=== PATIENT | female | born 1995 ===

== ENCOUNTER 2017-05-12 11:35 | Emergency (ER) | payer SELFPAY ==
[2017-05-12 12:02] VITALS: RESP 18; O2SAT 100
[2017-05-12 13:03] LABS: RBC URINE 5 /hpf (0-3); URINE BACTERIA FEW (<OCC); URINE BILIRUBIN NEGATIVE (NEGATIVE); URINE BLOOD 1+ (NEGATIVE); URINE COLOR Yellow (YELLOW); URINE GLUCOSE (UA) NORMAL (Normal); URINE KETONE NEGATIVE (NEGATIVE); URINE LEUKOCYTE ESTERASE 1+ Leu/uL (Negative); URINE PROTEIN NEGATIVE (NEGATIVE); URINE UROBILINOGEN NORMAL mg/dL (0.2-1.0); WBC URINE 15 /hpf (0-5)
--- NOTE | 2017-05-12 13:42 | C.PDOC ---
Time Seen by Provider: 05/12/17 13:21 Chief Complaint (Nursing): Female Genitourinary Past Medical History Vital Signs: Last Vital Signs Temp 98.2 F 05/12/17 11:59 Pulse 73 05/12/17 11:59 Resp 18 05/12/17 11:59 BP 112/62 05/12/17 11:59 Pulse Ox 100 05/12/17 11:59 - Social History Hx Alcohol Use: No Hx Substance Use: No - Immunization History Hx Tetanus Toxoid Vaccination: No Hx Influenza Vaccination: No Hx Pneumococcal Vaccination: No ED Course And Treatment O2 Sat by Pulse Oximetry: 100 Disposition Counseled Patient/Family Regarding: Studies Performed, Diagnosis, Need For Followup, Rx Given - Disposition Referrals: [facility] [Outside] [facility] [facility] [Outside] Disposition: HOME/ ROUTINE Disposition Time: 13:39 Condition: STABLE Additional Instructions: Beber lquidos aumentados, agua y jugo de arndano alexandra. [place] antibiticos hasta que se complete, incluso si se siente mejor en unos gan. Seguimiento en la clnica mdica; regresar a ER para vomitar, peor dolor de espalda o cualquier otra preocupacin. Prescriptions: Nitrofurantoin Macrocrystals [Macrobid] 100 mg PO BID #14 cap Instructions: Urinary Tract Infection in Women (ED) Forms: Gen Discharge Inst Romansh, [employer] Connect (Romansh) - Clinical Impression Clinical Impression: Urinary tract infection
--- NOTE | 2017-05-12 13:46 | C.PDOC ---
History Of Present Illness 21 year old female presents to the ED with complaint of pain in the suprapubic area that has been going on since this morning. Patient states that urine has a foul smell that has been intermittent from the past 4 months. Patient also complains of associated nausea and back pain. Patient denies vomit, vaginal discharge, vaginal bleeding, painful intercourse. Of note, she denies any previous visits for evaluation of her symptoms. Time Seen by Provider: 05/12/17 13:21 Chief Complaint (Nursing): Female Genitourinary History Per: Patient History/Exam Limitations: no limitations Onset/Duration Of Symptoms: Days Current Symptoms Are (Timing): Still Present Quality Of Discomfort: Aching Associated Symptoms: Nausea, Back Pain, Urinary Symptoms (foul smell of urine). denies: Fever, Chills, Vomiting Alleviating Factors: None Recent travel outside of the [place]: No Abnormal Vaginal Bleeding: No Last Menstral Period: Last week of April Past Medical History Reviewed: Historical Data, Nursing Documentation, Vital Signs Vital Signs: Last Vital Signs Temp 98.4 F 05/12/17 13:59 Pulse 76 05/12/17 13:59 Resp 18 05/12/17 13:59 BP 116/64 05/12/17 13:59 Pulse Ox 100 05/12/17 14:00 - Medical History PMH: No Chronic Diseases Surgical History: No Surg Hx Family History: States: Unknown Family Hx - Social History Hx Alcohol Use: No Hx Substance Use: No - Immunization History Hx Tetanus Toxoid Vaccination: No Hx Influenza Vaccination: No Hx Pneumococcal Vaccination: No Review Of Systems Constitutional: Negative for: Fever, Chills Gastrointestinal: Positive for: Nausea. Negative for: Vomiting Genitourinary: Positive for: Other (Malodorous urine). Negative for: Dysuria, Frequency, Vaginal Discharge, Vaginal Bleeding Musculoskeletal: Positive for: Back Pain (Lower back) Physical Exam - Physical Exam Appears: Non-toxic, No Acute Distress Skin: Normal Color, Warm, Dry Oral Mucosa: Moist Chest: Symmetrical Cardiovascular: Rhythm Regular Respiratory: No Rales, No Rhonchi, No Wheezing Gastrointestinal/Abdominal: Bowel Sounds, Soft, No Tenderness Back: CVA Tenderness (Mild) Neurological/Psych: Oriented x3, Normal Speech, Normal Cognition ED Course And Treatment O2 Sat by Pulse Oximetry: 100 (Room air) Pulse Ox Interpretation: Normal Medical Decision Making Medical Decision Making: Impression: 21yo female w/ suprapubic pain and associated back pain, malodorous urine Plan: -- Urine culture obtained, test and urinalysis performed. Patient was given instructions to follow for proper care, also if symptoms persist to come back. Patient understood the instructions. Disposition - Disposition Referrals: [facility] [Outside] [facility] [Outside] Disposition: HOME/ ROUTINE Disposition Time: 14:00 Condition: STABLE Additional Instructions: Beber lquidos aumentados, agua y jugo de arndano alexandra. [place] antibiticos hasta que se complete, incluso si se siente mejor en unos gan. Seguimiento en la clnica mdica; regresar a ER para vomitar, peor dolor de espalda o cualquier otra preocupacin. Prescriptions: Nitrofurantoin Macrocrystals [Macrobid] 100 mg PO BID #14 cap Instructions: Urinary Tract Infection in Women (ED) Forms: Gen Discharge Inst Com[place]an, Kaboodle (Occitan), Kaboodle (Comoran) Print Language: TURKMEN - Clinical Impression Clinical Impression: Urinary tract infection - Scribe Statement The provider has reviewed the documentation as recorded by the Scribe Rober Brink All medical record entries made by the Scribe were at my direction and personally dictated by me. I have reviewed the chart and agree that the record accurately reflects my personal performance of the history, physical exam, medical decision making, and the department course for this patient. I have also personally directed, reviewed, and agree with the discharge instructions and disposition.
[2017-05-12 14:00] VITALS: BP 116/64; PULSE 76; TEMP 98.4
== END 2017-05-12 14:05 | disposition home or self-care (01) ==
LOC: C.ER 11:35
DX: N39.0 Urinary tract infection, site not specified (principal)

== ENCOUNTER 2018-02-09 21:41 | Emergency (ER) | payer OTHER ==
[2018-02-09 22:08] VITALS: BMI 24.5
[2018-02-09 22:24] LABS: BASO % 0.3 % (0.0-2.0); EOS % 0.4 % (0.0-4.0); HEMOGLOBIN 14.5 g/dL (11.0-16.0); LYMPH # 1.6 K/uL (1.0-4.3); LYMPH % 15.5 % (20.0-40.0); MEAN CELL VOLUME 85.3 fL (81.0-99.0); MEAN CORPUSCULAR HEMOGLOBIN 29.1 pg (27.0-31.0); MEAN CORPUSCULAR HGB CONC 34.1 g/dL (33.0-37.0); MEAN PLATELET VOLUME 8.3 fL (7.2-11.7); MONO # 0.5 K/uL (0.0-0.8); MONO % 4.6 % (0.0-10.0); NEUT # 8.4 K/uL (1.8-7.0); NEUT % 79.2 % (50.0-75.0); RED CELL DISTRIBUTION WIDTH 12.2 % (11.5-14.5); WHITE BLOOD COUNT 10.6 K/uL (4.8-10.8)
[2018-02-09] MEDS ORDERED: Sodium Chloride 0.9% 1,000 ML IV ONE (22:26)
[2018-02-09 22:43] LABS: ALB/GLOB RATIO 1.8 (1.0-2.1); ALBUMIN 4.6 g/dL (3.5-5.0); ALT/SGPT 42 U/L (9-52); AST/SGOT 28 U/L (14-36); BLOOD UREA NITROGEN 9 mg/dL (7-17); CALCIUM 9.3 mg/dl (8.6-10.4); GFR AFRICAN-AMERICAN > 60; GFR NON-AFRICAN AMERICAN > 60
--- NOTE | 2018-02-09 23:09 | C.PDOC ---
History Of Present Illness 22 y/o female with Hx of gastritis presents to ED for complaints of mild epigastric abdominal pain/tenderness that began yesterday. Patient reports associated symptoms of nausea, vomiting and diarrhea. Patient states she took omeprazole with no relief. Denies fever, chills, or any other physical complaints. Time Seen by Provider: 02/09/18 22:26 Chief Complaint (Nursing): Abdominal Pain History Per: Patient History/Exam Limitations: no limitations Onset/Duration Of Symptoms: Days (1) Current Symptoms Are (Timing): Still Present Severity: Moderate Pain Scale Rating Of: 4 Location Of Pain/Discomfort: Epigastric Radiation Of Pain To:: None Quality Of Discomfort: Unable To Describe Associated Symptoms: Nausea, Vomiting, Diarrhea. denies: Fever, Chills Exacerbating Factors: None Alleviating Factors: None Last Bowel Movement: Today Recent travel outside of the [place]: No Abnormal Vaginal Bleeding: No Past Medical History Reviewed: Historical Data, Nursing Documentation, Vital Signs Vital Signs: Last Vital Signs Temp 98.9 F 02/10/18 01:52 Pulse 85 02/10/18 01:52 Resp 19 02/10/18 01:52 BP 96/56 L 02/10/18 01:52 Pulse Ox 99 02/10/18 01:52 - Medical History PMH: Gastritis Surgical History: No Surg Hx Family History: States: Unknown Family Hx - Social History Hx Alcohol Use: No Hx Substance Use: No - Immunization History Hx Tetanus Toxoid Vaccination: No Hx Influenza Vaccination: No Hx Pneumococcal Vaccination: No Review Of Systems Constitutional: Negative for: Fever, Chills Gastrointestinal: Positive for: Nausea, Vomiting, Abdominal Pain (Epigastric ), Diarrhea Skin: Negative for: Rash Neurological: Negative for: Weakness, Numbness Physical Exam - Physical Exam Appears: Non-toxic, No Acute Distress Skin: Warm, Dry Head: Normacephalic Eye(s): bilateral: Normal Inspection Oral Mucosa: Moist Neck: Trachea Midline, Supple Chest: Symmetrical, No Tenderness Cardiovascular: Rhythm Regular Respiratory: No Rales, No Rhonchi, No Wheezing Gastrointestinal/Abdominal: Soft, Tenderness (Mid epigastric ) Extremity: Normal ROM, No Deformity Extremity: Bilateral: Atraumatic, Normal Color And Temperature, Normal ROM Neurological/Psych: Oriented x3, Normal Speech Gait: Steady ED Course And Treatment - Laboratory Results Result Diagrams: 02/09/18 22:19 02/09/18 22:19 O2 Sat by Pulse Oximetry: 100 (RA) Pulse Ox Interpretation: Normal Progress Note: Administered IV fluids, Morphine, Pepcid, and Zofran. Ordered blood work and Urinalysis. Reevaluation Time: 03:19 Reassessment Condition: Improved Disposition Counseled Patient/Family Regarding: Studies Performed, Diagnosis, Need For Followup, Rx Given - Disposition Referrals: [facility] [Outside] [facility] [Outside] Disposition: HOME/ ROUTINE Disposition Time: 01:00 Condition: FAIR Additional Instructions: Please return if symptoms recur Prescriptions: traMADol [Ultram] 50 mg PO TID PRN #15 tab PRN Reason: Pain, Severe (8-10) Instructions: Ovarian Cyst (DC) Forms: [employer] Connect (Sierra Leonean), Work Excuse Print Language: MEXICAN - Clinical Impression Clinical Impression: Abdominal pain, Ovarian cyst - Scribe Statement The provider has reviewed the documentation as recorded by the Pravinibsatya Sesay All medical record entries made by the Pravinibsatya were at my direction and personally dictated by me. I have reviewed the chart and agree that the record accurately reflects my personal performance of the history, physical exam, medical decision making, and the department course for this patient. I have also personally directed, reviewed, and agree with the discharge instructions and disposition.
[2018-02-10] MEDS ORDERED: Iodixanol 320 MG/ML 100 ML BOTTLE IV ONE (00:24)
[2018-02-10] MEDS ORDERED: Sodium Chloride 0.9% 1,000 ML IV ONE (00:26)
[2018-02-10 01:09] LABS: SQUAMOUS EPITHIAL 6 /hpf (0-5); URINE BILIRUBIN NEGATIVE (NEGATIVE); URINE BLOOD NEGATIVE (NEGATIVE); URINE CLARITY Clear (Clear); URINE COLOR Yellow (YELLOW); URINE GLUCOSE (UA) NORMAL (Normal); URINE LEUKOCYTE ESTERASE NEG Leu/uL (Negative); URINE PROTEIN NEGATIVE (NEGATIVE); URINE UROBILINOGEN NORMAL mg/dL (0.2-1.0)
[2018-02-10 01:15] LABS: HCG,QUALITATIVE URINE NEGATIVE (NEGATIVE)
[2018-02-10] MEDS ORDERED: Sodium Chloride 0.9% 1,000 ML ONE (01:16)
[2018-02-10 01:53] VITALS: PULSE 85
[2018-02-10 03:23] VITALS: O2SAT 100
[2018-02-10 03:42] VITALS: BP 100/58; RESP 18; TEMP 98.1
--- NOTE | 2018-02-10 10:18 | CT ---
Date of service: 02/10/2018 PROCEDURE: CT Abdomen and Pelvis with contrast HISTORY: severe mid epigastric pain COMPARISON: None. TECHNIQUE: Contrast dose: 100 mL Visipaque 320. Axial and reformatted coronal and sagittal CT images of the abdomen and pelvis were obtained after IV contrast administration Radiation dose: Total exam DLP = 338.0 mGy-cm. This CT exam was performed using one or more of the following dose reduction techniques: Automated exposure control, adjustment of the mA and/or kV according to patient size, and/or use of iterative reconstruction technique. FINDINGS: LOWER THORAX: Unremarkable. LIVER: Mild hepatomegaly is noted. No evidence of acute pathology or suspicious mass. GALLBLADDER AND BILE DUCTS: Unremarkable. PANCREAS: Unremarkable. No gross lesion or ductal dilatation. SPLEEN: Unremarkable. ADRENALS: Unremarkable. No mass. KIDNEYS AND URETERS: There are multiple low-attenuation lesions in both kidneys larger on the left likely represent renal cyst. Further assessment by ultrasound is suggested. No evidence of hydronephrosis. VASCULATURE: Unremarkable. No aortic aneurysm. BOWEL: Suspicious for descending colon wall thickening versus incomplete distention. Correlate clinically for colitis. No evidence of high-grade bowel obstruction. APPENDIX: No CT evidence of appendicitis. PERITONEUM: Unremarkable. No free fluid. No free air. LYMPH NODES: Unremarkable. No enlarged lymph nodes. BLADDER: Unremarkable. REPRODUCTIVE: There is a 5.1 centimeters cystic lesion seen anterior and to the left of the uterus likely represent left adnexal cyst. Small amount of free fluid in the pelvis seen. The uterus is slightly heterogeneous without evidence of discrete mass. The right adnexa is unremarkable. BONES: No acute fracture. OTHER FINDINGS: None. IMPRESSION: 5.1 centimeter cystic lesion at the left pelvis likely represent left adnexal cyst. Further assessment by ultrasound is suggested. Possible left colitis versus incomplete distention of the descending colon. Please correlate clinically. Small bilateral low-attenuation renal lesions noted. Further assessment by ultrasound is recommended. The differential consideration includes post cystic kidney disease. Preliminary report was submitted by [facility].
== END 2018-02-10 03:42 | disposition home or self-care (01) ==
LOC: C.ER 21:41
DX: R10.9 Unspecified abdominal pain (principal); N83.202 Unspecified ovarian cyst, left side
CPT/HCPCS: 74177; 80053; 81001; 83690; 84702; 84703; 85025; 96361; 96374; 96375; 99285; J2270; J2405; J2765; J7030; Q9967

== ENCOUNTER 2018-04-24 11:37 | Emergency (ER) | payer OTHER ==
[2018-04-24 11:37] VITALS: BMI 24.5
[2018-04-24 11:45] VITALS: O2SAT 100
[2018-04-24] MEDS ORDERED: Sodium Chloride 0.9% 1,000 ML IV ONE (12:37)
[2018-04-24 13:13] LABS: BASO % 0.3 % (0.0-2.0); EOS % 0.4 % (0.0-4.0); LYMPH # 1.5 K/uL (1.0-4.3); LYMPH % 16.7 % (20.0-40.0); MEAN CELL VOLUME 86.6 fL (81.0-99.0); MEAN CORPUSCULAR HEMOGLOBIN 29.8 pg (27.0-31.0); MEAN CORPUSCULAR HGB CONC 34.4 g/dL (33.0-37.0); MEAN PLATELET VOLUME 8.2 fL (7.2-11.7); MONO # 0.3 K/uL (0.0-0.8); MONO % 3.7 % (0.0-10.0); NEUT # 7.1 K/uL (1.8-7.0); NEUT % 78.9 % (50.0-75.0); RBC 4.7 Mil/uL (3.80-5.20); RED CELL DISTRIBUTION WIDTH 12.5 % (11.5-14.5)
--- NOTE | 2018-04-24 13:26 | C.PDOC ---
History Of Present Illness 22 y/o female presents to the ED complaining of persistent abdominal pain and nausea. Patient is s/p endoscopy on Friday and was diagnosed with H. pylori. She was started on PO bentyl, amoxicillin 1gm BID, omeprazole 20 mg BID, and clarithromycin 500mg BID on Friday. Patient is now reporting diarrhea since starting the medications. Associated with worsening abdominal pain and nausea; states she is spitting up yellowish colored fluid on occasion. Otherwise patient denies fever, chills, urinary symptoms. Time Seen by Provider: 04/24/18 12:18 Chief Complaint (Nursing): Abdominal Pain History Per: Patient History/Exam Limitations: no limitations Onset/Duration Of Symptoms: Days Current Symptoms Are (Timing): Worse Associated Symptoms: Nausea, Diarrhea Past Medical History Reviewed: Historical Data, Nursing Documentation, Vital Signs Vital Signs: Last Vital Signs Temp 98.5 F 04/24/18 16:52 Pulse 80 04/24/18 16:52 Resp 16 04/24/18 17:34 BP 126/70 04/24/18 16:52 Pulse Ox 100 04/24/18 17:01 - Medical History PMH: Gastritis Other PMH: H. pylori Surgical History: Endoscopy Family History: States: Unknown Family Hx - Social History Hx Alcohol Use: No Hx Substance Use: No - Immunization History Hx Tetanus Toxoid Vaccination: No Hx Influenza Vaccination: No Hx Pneumococcal Vaccination: No Review Of Systems Constitutional: Negative for: Fever, Chills Eyes: Negative for: Vision Change Respiratory: Negative for: Shortness of Breath Gastrointestinal: Positive for: Nausea, Abdominal Pain, Diarrhea. Negative for : Vomiting, Hematochezia, Hematemesis Genitourinary: Negative for: Dysuria, Frequency, Hematuria, Vaginal Bleeding Neurological: Negative for: Weakness, Dizziness Physical Exam - Physical Exam Appears: Non-toxic, Other (Appears uncomfortable) Skin: Normal Color, Warm, Dry Head: Atraumatic, Normacephalic Eye(s): bilateral: Normal Inspection Oral Mucosa: Moist Neck: Normal ROM Chest: Symmetrical Cardiovascular: Rhythm Regular, No Murmur Respiratory: Normal Breath Sounds, No Accessory Muscle Use Gastrointestinal/Abdominal: Bowel Sounds (normoactive), Soft, Tenderness (Mild epigastric tenderness), No Distention, No Guarding, No Rebound, Other (neg [place] sign) Extremity: Bilateral: Atraumatic, Normal Color And Temperature, Normal ROM Neurological/Psych: Oriented x3, Normal Speech, Normal Cognition ED Course And Treatment - Laboratory Results Result Diagrams: 04/24/18 12:58 04/24/18 12:58 O2 Sat by Pulse Oximetry: 100 (RA) Pulse Ox Interpretation: Normal Medical Decision Making Medical Decision Making: Initial Plan: Blood work and urine sent. Administered IVF hydration, 4 mg Zofran, and 20 mg Pepcid. Discussed w/ patient the importance of completing 10 day course of treatment. Advised diarrhea may be side effect of the antibiotics. 1520 pt with decreased pain, abdomen soft, nd, nt on exam. c/o persisting nausea. reglan ordered. po challenge to be given. 1650 pt with no abdominal pain, nausea resolved, tolerates po fluids, will d/c with reglan. Disposition Counseled Patient/Family Regarding: Studies Performed, Diagnosis, Need For Followup, Rx Given - Disposition Referrals: [facility] [Outside] Disposition: HOME/ ROUTINE Disposition Time: 16:51 Condition: IMPROVED Additional Instructions: Contine tomando medicaciones para H pylori hasta que se complete, alexandra un seguimiento con shaver mdico de estmago segn lo programado. Swathi mayor cantidad de lquidos Maalox para el dolor adems de medicne prescrito por shaver mdico. Cortney Immodium por direcciones. Please continue to take medicaiotns for H pylori until completed, Follow up with your stomach doctor as scheduled. Drink increased fluids. Maalox for pain in addition to medicne your doctor prescribed. Take Immodium per directions. Prescriptions: Loperamide [Loperamide HCl] 2 mg PO Q6 #15 cap Metoclopramide [Reglan] 10 mg PO Q8 PRN #10 tab PRN Reason: Nausea/Vomiting Instructions: Diarrhea in Adolescents and Adults, H. pylori Infection (DC) Forms: Gen Discharge Inst Slovenian, [employer] (Slovenian) Print Language: TELUGU - Clinical Impression Clinical Impression: H. pylori infection, Diarrhea due to drug - PA / AUTOMOTIVE WARRANTY ADMINISTRATOR / Resident Statement MD/DO has reviewed & agrees with the documentation as recorded. - Scribe Statement The provider has reviewed the documentation as recorded by the Scribe (Albina Mao) All medical record entries made by the Scribe were at my direction and personally dictated by me. I have reviewed the chart and agree that the record accurately reflects my personal performance of the history, physical exam, medical decision making, and the department course for this patient. I have also personally directed, reviewed, and agree with the discharge instructions and disposition.
[2018-04-24 13:37] LABS: ALB/GLOB RATIO 1.4 (1.0-2.1); ALBUMIN 4.1 g/dL (3.5-5.0); ALT/SGPT 28 U/L (9-52); AST/SGOT 26 U/L (14-36); BLOOD UREA NITROGEN 11 mg/dL (7-17); CALCIUM 9.5 mg/dl (8.6-10.4); GFR NON-AFRICAN AMERICAN > 60; LIPASE 138 U/L (23-300)
[2018-04-24 14:32] LABS: SQUAMOUS EPITHIAL 1 /hpf (0-5); URINE BACTERIA RARE (<OCC); URINE BILIRUBIN NEGATIVE (NEGATIVE); URINE BLOOD NEGATIVE (NEGATIVE); URINE CLARITY Clear (Clear); URINE COLOR Colorless (YELLOW); URINE GLUCOSE (UA) NORMAL (Normal); URINE LEUKOCYTE ESTERASE NEG Leu/uL (Negative); URINE PROTEIN NEGATIVE (NEGATIVE); URINE UROBILINOGEN NORMAL mg/dL (0.2-1.0)
[2018-04-24 14:35] LABS: HCG,QUALITATIVE URINE NEGATIVE (NEGATIVE)
[2018-04-24 16:53] VITALS: BP 126/70; PULSE 80; RESP 16; TEMP 98.5
== END 2018-04-24 17:34 | disposition home or self-care (01) ==
LOC: C.ER 11:37
DX: R19.7 Diarrhea, unspecified (principal); B96.81 Helicobacter pylori [H. pylori] as the cause of diseases classified elsewhere
CPT/HCPCS: 80053; 81001; 83690; 84703; 85025; 96374; 96375; 99285; J2405; J2765; J7030